=== PATIENT | male | born 1995 | race Caucasian/White ===

== ENCOUNTER 2017-02-03 02:50 | Emergency (ER) | payer OTHER ==
[~2017-02-03 02:50] MED LIST: ARISTOCORT A 0.60 GM TOP; CIPRO PO; CLARITIN10 MG PO; FLEXERIL10 M1 PO; FLOMAX0.4 M1 DOB; IBUPROFEN400 MG PO; IBUPROFEN600 MG PO; KEFLEX PO; MOTRIN IB200 M1 PO; NAPROSYN500 MG PO; PERCOCET 51 UDTAB 5/ DOB; PHENERGAN PO; ZITHROMAX PO
== END 2017-02-03 05:27 | disposition home or self-care (01) ==
LOC: CED 02:50
DX: T78.40XA Allergy, unspecified, initial encounter (principal); J45.909 Unspecified asthma, uncomplicated
CPT/HCPCS: 96374; 96375; 99284; J1200; J2930

== ENCOUNTER 2017-05-01 22:12 | Emergency (ER) | payer OTHER ==
--- NOTE | ~2017-05-01 | CT2 ---
[facility] A Service of [facility] RADIOLOGY TEXT RESULTS PATIENT: TOMEKA LAURA LOCATION: [facility] : [birth year] UNIT #: [id number] AGE: [address]: Darci Villatoro MD SEX: M ORDER DR: [id number] [facility] [address] [facility]. [place], [place] [address] [id number] MR#: [id number] Acc #: [id number] NAME: TOMEKA LAURA : 1995 SEX: M STUDY DATE/TIME: 05/02/2017 02:31 UNIT: [facility] ROOM: STUDY DESCRIPTION: CT Abd and Pelv W Cont Attending Physician: Darci Villatoro Ordering Physician: Ed Doc Uche Thomas Primary Care Physician: [facility] IMAGING REPORT This report is preliminary unless electronic signature is present EXAM CT abdomen and pelvis, 05/02/2017 at 02:31 INDICATION Mid abdominal pain for 3 days. TECHNIQUE Axial images were obtained through the abdomen and pelvis following oral and IV contrast administration. Multiplanar reformats were obtained. Comparison made with 08/18/2015. This CT exam was performed with one or more of the following radiation dose reduction techniques: automatic exposure control, adjustment of mA and/or kV according to patient size, and iterative reconstruction. FINDINGS ABDOMEN: Lung bases are clear. Gallbladder is normal. There is no biliary obstruction. Solid abdominal organs are normal. No adenopathy or free fluid. The GI tract is normal. PELVIS: The appendix is surgically absent. The GI tract is otherwise normal. Urinary bladder is normal. No free fluid is seen. There is skin thickening noted at the emboli this segment appears to prior study. This may be a chronic finding or could reflect acute cellulitis. Correlate with physical exam findings. IMPRESSION 1. Appendectomy. The GI tract is otherwise normal. 2. Normal nonobstructed kidneys. 3. Skin thickening about the umbilicus which is not significantly changed from the 2014 study. This could be a chronic area of skin inflammation or could reflect acute cellulitis. Correlate with [facility] A Service of [facility] RADIOLOGY TEXT RESULTS PATIENT: TOMEKA LAURA [facility] [id number] : [birth year] UNIT #: [id number] AGE: [address]: Darci Villatoro MD SEX: M ORDER DR: physical exam findings and history. Dictated by... Kang James Jr., M.D. THIS IS AN ELECTRONICALLY VERIFIED REPORT Kang James Jr., M.D. at 05/02/2017 6:10 AM OPAL/tushar TD: 05/02/2017 04:21 JOB #: [id number] MEDICAL IMAGING REPORT Page 1 of 1 COPY
[2017-05-02 00:48] LABS: BASOPHIL% 0.5 % (0-2.5); EOSINOPHIL# 0.1 X10e3 (0-0.7); EOSINOPHIL% 0.8 % (0.0-7.0); HEMATOCRIT 41.9 % (38.0-50.0); HEMOGLOBIN 14.1 gm/dL (13.0-16.0); LYMPHOCYTE# 2.8 X10e3 (1.0-3.5); LYMPHOCYTE% 29.8 % (17.0-45.0); MEAN CELL VOLUME 87.3 FL (83-96); MEAN CORPUSCULAR HEMOGLOBIN 29.4 PG (28-34); MEAN CORPUSCULAR HGB CONC 33.6 g/dL (30-36); MEAN PLATELET VOLUME 8.7 FL (6.5-11.5); MONOCYTE# 0.7 X10e3 (0-1.0); MONOCYTE% 7.3 % (3.0-12.0); NEUTROPHIL# 5.7 X10e3 (1.5-7.1); NEUTROPHIL% 61.6 % (40-75); PLATELET COUNT 281 X10e3 (140-420); WHITE BLOOD COUNT 9.3 X10e3 (4.0-10.5)
[2017-05-02 00:51] LABS: DIFF IND NO
[2017-05-02 01:13] LABS: ALBUMIN SERUM 4.9 g/dL (3.5-5.0); BILIRUBIN,TOTAL 0.5 mg/dL (0.2-2.0); BUN/CREATININE RATIO 14.44; CALCIUM SERUM 9.5 mg/dL (8.4-10.2); CREATININE SERUM 0.9 mg/dL (0.6-1.4); GLOM FILT RATE Estimated 122.5 mL/min (>60); POTASSIUM 3.1 mmol/L (3.5-5.1)
[2017-05-02 01:14] LABS: BILIRUBIN, DIRECT 0.1 mg/dL (0.0-0.2); BILIRUBIN,INDIRECT 0.4 mg/dL (0.0-0.9)
[2017-05-02 01:15] LABS: URINE SOURCE CLEAN CATCH
[2017-05-02 01:22] LABS: URINE APPEARANCE CLEAR; URINE BILIRUBIN NEG (NEG); URINE BLOOD NEG (NEG); URINE COLOR YELLOW; URINE GLUCOSE NEG (NEG); URINE KETONE NEG (NEG); URINE LEUKOCYTE ESTERASE NEG (NEG); URINE NITRATE NEG (NEG); URINE PROTEIN NEG (NEG); URINE UROBILINOGEN 0.2 MG/DL (NEG)
[2017-05-02 01:31] LABS: CULTURE INDICATED? NO
== END 2017-05-02 03:25 | disposition home or self-care (01) ==
LOC: CED 22:12
PROVIDERS: Emergency Medicine
DX: K91.840 Postprocedural hemorrhage of a digestive system organ or structure following a digestive system procedure (principal); J45.909 Unspecified asthma, uncomplicated; Z98.890 Other specified postprocedural states; Z87.442 Personal history of urinary calculi
CPT/HCPCS: 36415; 74177; 80048; 80076; 81003; 82150; 83690; 85025; 99284; Q9967